=== PATIENT | male | born 2005 | race Caucasian/White ===

== ENCOUNTER 2024-12-01 02:06 | Emergency (ER) | payer MEDICAID, SELFPAY ==
[2024-12-01 02:19] VITALS: BP 121/68; PULSE 88; RESP 18; TEMP 36.4; O2SAT 99; BMI 25.2
[2024-12-01 02:36] LABS: Basophils Percent Auto 0.1 % (0-2); Eosinophils Percent Auto 0.1 % (0-4); Hematocrit 49.3 % (42.0-52.0); Hemoglobin 17.4 g/dl (14.0-18.0); Imm Gran Abs Auto 0.04 X10*3/uL (0.00-0.03); Imm Gran Pct Auto 0.2 % (0.0-0.4); Lymphocytes Absolute Auto 0.5 X10*3/uL (1.2-4.9); Lymphocytes Percent Auto 3.2 % (20-40); Mean Corpuscular HGB Conc 35.3 g/dl (31.0-36.0); Mean Corpuscular Hemoglobin 31.1 pg (27.0-33.0); Mean Platelet Volume 10.8 fL (9.4-12.4); Monocytes Absolute Auto 0.6 X10*3/uL (0.1-1.2); Monocytes Percent Auto 3.5 % (2-11); Neutrophils Absolute Auto 15.6 x10*3/uL (2.0-8.3); Neutrophils Percent Auto 92.9 % (45-73); Platelet Count 180 X10*3/uL (160-400); Red Cell Distribution Width 12.9 % (11.0-16.0); SCAN SMEAR FLAG 1; White Blood Count 16.8 X10*3/uL (4.8-10.8)
[2024-12-01 02:38] LABS: MANUAL DIFF FLAG SCAN
[2024-12-01 02:56] LABS: Alanine Aminotransferase 15 U/L (0-40); Albumin Level 5.3 g/dL (3.5-5.0); Anion Gap 17 (12-20); Aspartate Amino Transferase 21 U/L (5-37); Bilirubin Total 2.6 mg/dL (0.0-1.0); Blood Urea Nitrogen 21 mg/dL (9-16); Calcium 10.6 mg/dL (8.4-10.2); Carbon Dioxide 24 mmol/L (22-29); Chloride 106 mmol/L (96-108); Creatinine Clr Calc Pharmacy 105.5; Estimated Glomerular Filt Rate > 60; Glucose Random 146 mg/dL (60-115); Lipase 12 U/L (8-78); Potassium 4.4 mmol/L (3.3-5.1); Sodium 143 mmol/L (135-145); Total Protein 8.7 g/dL (6.5-8.0)
[2024-12-01 03:01] LABS: SLIDE REVIEW VERIFIED
[2024-12-01 03:13] LABS: Influenza A PCR NEGATIVE (Negative); Influenza B PCR NEGATIVE (Negative); Resp Syncy Virus RNA Qual PCR NEGATIVE (Negative); SARS COV2 PCR INHOUSE NEGATIVE (Negative)
--- NOTE | 2024-12-01 03:32 | ED.GENADULT ---
HPI - General Adult General Chief complaint: General Medical Stated complaint: v/n/d Time Seen by Provider: 12/01/24 03:32 Source: patient Mode of arrival: ambulatory Limitations: no limitations History of Present Illness ED Provider: HPI narrative: Patient otherwise healthy complaining of nausea vomiting diarrhea since 18:00 yesterday patient has had meat sandwich earlier started with vomiting and then diarrhea had multiple episodes more than 8 times had diarrhea and vomiting with diffuse abdominal cramps Related Data Previous Rx's ?Medication ?Instructions ?Recorded loperamide 2 mg tablet (Imodium 2 mg PO Q6H PRN loose stool #10 12/01/24 A-D) tabs ondansetron 4 mg disintegrating 4 mg PO Q6-8H PRN nausea and 12/01/24 tablet vomiting #7 tabs Allergies Allergy/AdvReac Type Severity Reaction Status Date / Time No Known Allergies Allergy Verified 12/01/24 02:20 Review of Systems Review of Systems: Yes all other systems are reviewed and are negative PMFSH Social History Social History Advance Directives: No Advance Directives Information Provided: Yes Do you have a plan to hurt others: No Plan Physical Exam ED Vital Signs: Vital Signs - 24 hr 12/01/24 02:19 Temperature 97.6 F Pulse Rate 88 Respiratory Rate 18 Blood Pressure 121/68 Pulse Oximetry 99 Oxygen Delivery Method Room Air BMI result Body Mass Index 25.2 Appearance: Alert. Oriented X3. No acute distress. ENT: Pharynx normal. Oral Mucosa moist Neck: Normal inspection. Neck supple. CVS: Normal heart rate and rhythm. Pulses normal. Respiratory: No respiratory distress. Equal air entry bilateral, no wheezing/rales/rhonchi abd; soft nontender nondistended Skin: Skin warm and dry. Normal skin color. Normal skin turgor. Extremities: No lower extremity edema. Neuro: Oriented X 3. Medications Administered Discontinued Medications Generic Name Dose Route Start Last Admin Trade Name Freq PRN Reason Stop Dose Admin Loperamide HCl 4 mg 12/01/24 03:43 12/01/24 04:41 Loperamide Hcl 2 Mg Capsule PO 12/01/24 03:44 4 mg ONCE ONE Administration Ondansetron HCl 4 mg 12/01/24 03:43 12/01/24 04:41 Ondansetron Odt 4 Mg Tab.Joaquina TRANSLINGU 12/01/24 03:44 4 mg ONCE ONE Administration Medical Decision Making Medical Decision Making [facility] Narrative: Patient's gastroenteritis improved after medications discharge patient home taking p.o. fluids Lab Data [facility] Lab Attestation statement: I reviewed the patient's lab results. 12/01/24 02:30 12/01/24 02:30 Labs: Lab Results 12/01/24 Range/Units 02:30 WBC 16.8 H (4.8-10.8) X10*3/uL RBC 5.60 (4.60-5.80) X10*6/uL Hgb 17.4 (14.0-18.0) g/dl Hct 49.3 (42.0-52.0) % MCV 88.0 (80.0-98.0) fL MCH 31.1 (27.0-33.0) pg MCHC 35.3 (31.0-36.0) g/dl RDW 12.9 (11.0-16.0) % Plt Count 180 (160-400) X10*3/uL MPV 10.8 (9.4-12.4) fL Immature Gran % (Auto) 0.2 (0.0-0.4) % Neut % (Auto) 92.9 H (45-73) % Lymph % (Auto) 3.2 L (20-40) % [place] % (Auto) 3.5 (2-11) % Eos % (Auto) 0.1 (0-4) % Baso % (Auto) 0.1 (0-2) % Lymph # (Auto) 0.5 L (1.2-4.9) X10*3/uL [place] # (Auto) 0.6 (0.1-1.2) X10*3/uL Eos # (Auto) 0.0 (0.0-0.4) X10*3/uL Baso # (Auto) 0.0 (0.0-0.2) X10*3/uL Abs Immat Gran (auto) 0.04 H (0.00-0.03) X10*3/uL Absolute Neuts (auto) 15.6 H (2.0-8.3) x10*3/uL Absolute Nucleated RBC 0.000 (0.0-0.012) X10*3/uL Nucleated RBC % (auto) 0.0 (0.0-0.2) /100WBC Smear Tech's Comments VERIFIED Sodium 143 (135-145) mmol/L Potassium 4.4 (3.3-5.1) mmol/L Chloride 106 (96-108) mmol/L Carbon Dioxide 24 (22-29) mmol/L Anion Gap 17 (12-20) BUN 21 H (9-16) mg/dL Creatinine 1.08 (0.5-1.4) mg/dL Estim Creat Clear Calc 105.5 Estimated GFR > 60 Random Glucose 146 H (60-115) mg/dL Calcium 10.6 H (8.4-10.2) mg/dL Total Bilirubin 2.6 H (0.0-1.0) mg/dL AST 21 (5-37) U/L ALT 15 (0-40) U/L Alkaline Phosphatase 75 (39-117) U/L Total Protein 8.7 H (6.5-8.0) g/dL Albumin 5.3 H (3.5-5.0) g/dL Lipase 12 (8-78) U/L Influenza Type A (PCR) NEGATIVE (Negative) Influenza Type B (PCR) NEGATIVE (Negative) RSV RNA Qual (PCR) NEGATIVE (Negative) SARS-CoV-2 RNA (RT-PCR) NEGATIVE (Negative) Discharge Plan Discharge Clinical Impression: Viral gastroenteritis Patient Disposition: Home, Self-Care Instructions: Gastroenteritis (ED) Additional Instructions: Drink plenty of fluids Take medicine for the nausea as prescribed Take Imodium for severe diarrhea not more than 4 tablets a day Follow with your PCP if not better Prescriptions: New ondansetron 4 mg tablet,disintegrating 4 mg PO Q6-8H PRN (Reason: nausea and vomiting) Qty: 7 0RF loperamide [Imodium A-D] 2 mg tablet 2 mg PO Q6H PRN (Reason: loose stool) Qty: 10 0RF Stand Alone Forms: Work/School Release Interventions: ED Discharge Assessment Last Done: 12/01/24 06:00 Discharge Date/Time: 12/01/24 06:04 Print Language: Yi
[2024-12-01 03:46] LABS: Alkaline Phosphatase 75 U/L (39-117)
[2024-12-01 04:04] VITALS: BP 114/65; PULSE 100; RESP 16; TEMP 36.8; O2SAT 97
[2024-12-01] MEDS: Ondansetron ODT 4 MG TAB.RAPDIS TRANSLINGU (04:41)
[2024-12-01] MEDS: Loperamide HCl 2 MG CAPSULE 4 MG PO (04:41)
[2024-12-01 05:56] VITALS: BP 135/64; PULSE 89; RESP 16; TEMP 36.9; O2SAT 96
[2024-12-01 06:00] VITALS: BP 135/64; PULSE 89; RESP 16; TEMP 36.9; O2SAT 96
== END 2024-12-01 06:04 | disposition home or self-care (01) ==
PROVIDERS: Emergency Provider Internal Medicine
DX: K52.9 Noninfective gastroenteritis and colitis, unspecified (principal); R11.2 Nausea with vomiting, unspecified; R10.2 Pelvic and perineal pain; Z03.818 Encounter for observation for suspected exposure to other biological agents ruled out; Z79.899 Other long term (current) drug therapy
CPT/HCPCS: 0241U; 36415; 80053; 83690; 85025; 99283